=== PATIENT | male | born 1960 | race Caucasian/White ===

== ENCOUNTER 2018-12-29 08:43 | Emergency (ER) | payer BC ==
[2018-12-29] MEDS ORDERED: Etomidate 2 MG/ML 20 ML SDV IVPUSH ONE ×2 (08:44→09:40)
[2018-12-29] MEDS ORDERED: Tenecteplase 50 MG Kit ONE (08:49)
[2018-12-29] MEDS ORDERED: Sodium Chloride 0.9% 2.5 ML Syringe FLUSH PRN (08:53)
[2018-12-29] MEDS ORDERED: Sodium Chloride 0.9% 1,000 ML IV ONE ×4 (08:53→10:01)
[2018-12-29] MEDS ORDERED: Sodium Chloride 0.9% 10 ML Syringe FLUSH PRN (08:53)
[2018-12-29] MEDS ORDERED: Heparin Sodium 5,000 Units/ML Vial ONE (08:55)
[2018-12-29] MEDS ORDERED: Ondansetron 4 MG/2 ML SDV IVPUSH ONE ×2 (08:56→11:50)
[2018-12-29] MEDS ORDERED: Heparin Sodium 5,000 Units/ML Vial IVPUSH ONE (08:57)
[2018-12-29] MEDS ORDERED: Morphine 2 MG/ML Syringe IVPUSH ONE (08:57)
[2018-12-29] MEDS ORDERED: Heparin Sod,Pork In 0.45% Nacl 25,000 UNIT/500 ML IV.SOLN IV SCH ×2 (08:59→09:00)
[2018-12-29] MEDS ORDERED: Tenecteplase 50 MG Kit IV ONE (09:00)
[2018-12-29] MEDS ORDERED: Clopidogrel 75 MG Tab PO ONE (09:01)
--- NOTE | 2018-12-29 09:03 | EDM.PDOC ---
ED HPI GENERAL MEDICAL PROBLEM - General Chief Complaint: Chest Pain Stated Complaint: UNABLE TO BREATH Time Seen by Provider: 12/29/18 08:53 Source of Information: Reports: Patient History Limitations: Reports: No Limitations - History of Present Illness INITIAL COMMENTS - FREE TEXT/NARRATIVE: History of present illness: []Patient was brought in by ambulance after having chest pain that began this morning unknown exact time is rated 10/10 substernal. He was found by his unresponsive and EMS was called. EMS found him with a heart rate of 30 and slow to respond and diaphoretic. They gave him half a milligram of atropine dated 12-lead EKG which showed an inferior wall [place]. They gave him 2 doses of nitroglycerin and IV fluids. Patient arrived here awake and alert complaining of 6/10 chest pain with blood pressure of 103/78, pulse of 57, O2 sat 96 on 2 L. Patient has COPD and is not taking any medications, he denies having any heart disease. Review of systems: As per history of present illness and below otherwise all systems reviewed and negative. Past medical history: As per history of present illness and as reviewed below otherwise noncontributory. Surgical history: As per history of present illness and as reviewed below otherwise noncontributory. Social history: No reported history of drug or alcohol abuse. Family history: As per history of present illness and as reviewed below otherwise noncontributory. Physical exam: General: Well developed, well nourished in NAD, no diaphoresis HEENT: Atraumatic, normocephalic, pupils reactive, negative for conjunctival pallor or scleral icterus, mucous membranes moist, throat clear, neck supple, nontender, trachea midline. Lungs: Clear to auscultation, breath sounds equal bilaterally, chest nontender. Heart: S1S2, regular, negative for clicks, rubs, or JVD. Abdomen: NABS, Soft, nondistended, nontender. Negative for masses or hepatosplenomegaly. Negative for costovertebral tenderness. Pelvis: Stable nontender. Genitourinary: Deferred. Rectal: Deferred. Extremities: Atraumatic, negative for cords or calf pain. Neurovascular unremarkable. Neuro: Awake, alert, oriented. Cranial nerves II through XII unremarkable. Cerebellum unremarkable. Motor and sensory unremarkable throughout. Exam nonfocal. Skin:warm and dry Diagnostics: CBC, CMP, troponin, coags, chest x-ray 2, EKG 3, CT head negative Therapeutics: Zofran, T and K, heparin bolus and drip, Plavix started in the ED ED Course: Air transport was dispatched prior to patient's arrival Consulted Lissett Comanchebradford Villalobos accepts arrived and stated that he was driving his tractor and passed out x2 While in the ED patient started bradying down into the 30s with blood pressures 70's systolic decreasing to 50 systolic. 1 mg atropine was given and dopamine was started. Pacer pads were placed. Patient was intubated with RSI. Postintubation chest x-ray shows good ET tube placement. Fentanyl drip for sedation and rocuronium given. Please see nursing notes for dosages and times Impression: STEMI, heart block Prescriptions: N/A Plan: Transfer by air to Lissett Comanche Definitive disposition and diagnosis as appropriate pending reevaluation and review of above. Mid Sternal Chest Pain Score (Numeric/FACES): 6 - Related Data Allergies Allergy/AdvReac Type Severity Reaction Status Date / Time Penicillins Allergy Cannot Verified 12/29/18 09:10 Remember Home Meds: Home Meds . [No Known Home Meds] 12/29/18 [History] ED ROS GENERAL - Review of Systems Review Of Systems: ROS reveals no pertinent complaints other than HPI. ED EXAM, GENERAL - Physical Exam Exam: See Below (See history of present illness) Course - Vital Signs Last Recorded V/S: Last Vital Signs Temp 98.9 F 12/29/18 08:53 Pulse 49 L 12/29/18 08:53 Resp 18 12/29/18 08:53 BP 103/70 12/29/18 08:53 Pulse Ox 95 12/29/18 08:53 - Orders/Labs/Meds Orders: Active Orders 24 hr Category Date Time Status Cardiac Monitoring [RC] . DIRECTED Care 12/29/18 08:53 Active EKG Documentation Completion [RC] STAT Care 12/29/18 08:54 Active Oxygen Therapy [RC] ASDIRECTED Care 12/29/18 08:53 Active Pulse Oximetry [RC] ASDIRECTED Care 12/29/18 08:53 Active DOPamine/Dextrose 5%-Water [DOPamine in D5W 400 MG/250 Med 12/29/18 10:15 Active ML] 400 mg in 250 ml IV TITRATE Heparin Sod,Pork In 0.45% Nacl [Heparin-1/2Ns 25,000 Med 12/29/18 09:00 Active Units/500] 25,000 unit in 500 ml IV TITRATE Sodium Chloride 0.9% [Saline Flush] Med 12/29/18 08:53 Active 10 ml FLUSH ASDIRECTED PRN Sodium Chloride 0.9% [Saline Flush] Med 12/29/18 08:53 Active 2.5 ml FLUSH ASDIRECTED PRN Saline Lock Insert [OM.PC] Stat Oth 12/29/18 08:53 Ordered Medication Orders Heparin Sodium/Sodium Chloride (Heparin-1/2ns 25,000 Units/500) 25,000 unit in 500 mls @ 17.76 mls/hr IV TITRATE ROSA; Protocol Dopamine HCl/Dextrose (Dopamine In D5w 400 Mg/250 Ml) 400 mg in 250 mls @ 13.875 mls/hr IV TITRATE ORSA; Protocol Sodium Chloride (Saline Flush) 10 ml FLUSH ASDIRECTED PRN PRN Reason: Keep Vein Open Sodium Chloride (Saline Flush) 2.5 ml FLUSH ASDIRECTED PRN PRN Reason: Keep Vein Open Labs: Laboratory Tests 12/29/18 12/29/18 12/29/18 Range/Units 08:45 08:45 08:45 WBC 13.73 H (4.0-11.0) K/uL RBC 5.32 (4.50-5.90) M/uL Hgb 15.8 (13.0-17.0) g/dL Hct 46.8 (38.0-50.0) % MCV 88.0 (80.0-98.0) fL MCH 29.7 (27.0-32.0) pg MCHC 33.8 (31.0-37.0) g/dL RDW Std Deviation 42.9 (28.0-62.0) fl RDW Coeff of Norma 13 (11.0-15.0) % Plt Count 204 (150-400) K/uL MPV 11.80 (7.40-12.00) fL Neut % (Auto) 74.3 (48.0-80.0) % Lymph % (Auto) 19.4 (16.0-40.0) % [place] % (Auto) 4.7 (0.0-15.0) % Eos % (Auto) 1.2 (0.0-7.0) % Baso % (Auto) 0.4 (0.0-1.5) % Neut # (Auto) 10.2 H (1.4-5.7) K/uL Lymph # (Auto) 2.7 H (0.6-2.4) K/uL [place] # (Auto) 0.7 (0.0-0.8) K/uL Eos # (Auto) 0.2 (0.0-0.7) K/uL Baso # (Auto) 0.1 (0.0-0.1) K/uL Nucleated RBC % 0.0 /100WBC Nucleated RBCs # 0 K/uL INR 1.00 Sodium 143 (136-148) mmol/L Potassium 4.5 (3.5-5.1) mmol/L Chloride 107 (98-107) mmol/L Carbon Dioxide 23.7 (21.0-32.0) mmol/L BUN 12 (7.0-18.0) mg/dL Creatinine 1.2 (0.8-1.3) mg/dL Est Cr Clr Drug Dosing 70.13 mL/min Estimated GFR (MDRD) > 60.0 ml/min Glucose 185 H (74-106) mg/dL Calcium 8.6 (8.5-10.1) mg/dL Total Bilirubin 0.6 (0.2-1.0) mg/dL AST 33 (15-37) IU/L ALT 23 (14-63) IU/L Alkaline Phosphatase 72 (46-116) U/L Troponin I < 0.050 (0.000-0.056) ng/mL Total Protein 6.2 L (6.4-8.2) g/dL Albumin 3.4 (3.4-5.0) g/dL Globulin 2.8 (2.6-4.0) g/dL Albumin/Globulin Ratio 1.2 (0.9-1.6) Meds: Medications Generic Name Dose Route Start Last Admin Trade Name Freq PRN Reason Stop Dose Admin Heparin Sodium/Sodium Chloride 25,000 unit in 500 mls @ 17.76 mls/hr 12/29/18 09:00 Heparin-1/2ns 25,000 Units/500 IV TITRATE ROSA Protocol 12 UNITS/KG/HR Dopamine HCl/Dextrose 400 mg in 250 mls @ 13.875 mls/hr 12/29/18 10:15 Dopamine In D5w 400 Mg/250 Ml IV TITRATE ROSA Protocol 5 MCG/KG/MIN Sodium Chloride 10 ml 12/29/18 08:53 Saline Flush FLUSH ASDIRECTED PRN Keep Vein Open Sodium Chloride 2.5 ml 12/29/18 08:53 Saline Flush FLUSH ASDIRECTED PRN Keep Vein Open Discontinued Medications Generic Name Dose Route Start Last Admin Trade Name Freq PRN Reason Stop Dose Admin Atropine Sulfate 0.5 mg 12/29/18 09:30 Atropine 0.1 Mg/Ml IVPUSH 12/29/18 09:31 ONETIME ONE Atropine Sulfate 0.5 mg 12/29/18 09:36 Atropine 0.1 Mg/Ml IVPUSH 12/29/18 09:37 ONETIME ONE Clopidogrel Bisulfate 300 mg 12/29/18 09:01 12/29/18 09:04 Plavix PO 12/29/18 09:02 300 mg ONETIME ONE Administration Fentanyl 25 mcg 12/29/18 09:33 Sublimaze IVPUSH 12/29/18 09:34 ONETIME ONE Fentanyl Confirm 12/29/18 09:48 Sublimaze Administered 12/29/18 09:49 Dose 100 mcg .ROUTE .STK-MED ONE Fentanyl Confirm 12/29/18 09:49 Sublimaze Administered 12/29/18 09:50 Dose 100 mcg .ROUTE .STK-MED ONE Heparin Sodium (Porcine) 4,000 units 12/29/18 08:57 12/29/18 09:01 Heparin Sodium IVPUSH 12/29/18 08:58 4,000 units .BOLUS ONE Administration Protocol Heparin Sodium (Porcine) Confirm 12/29/18 08:55 Heparin Sodium Administered 12/29/18 08:56 Dose 5,000 units .ROUTE .STK-MED ONE Sodium Chloride 1,000 mls @ 999 mls/hr 12/29/18 08:53 12/29/18 08:45 Normal Saline IV 12/29/18 09:53 999 mls/hr BOLUS ONE Administration Propofol Confirm 12/29/18 09:45 Diprivan 100 Ml Administered 12/29/18 09:46 Dose 100 mls @ as directed .ROUTE .STK-MED ONE Ketamine HCl Confirm 12/29/18 09:51 Ketalar Administered 12/29/18 09:52 Dose 500 mg .ROUTE .STK-MED ONE Midazolam HCl 4 mg 12/29/18 10:02 Versed 1 Mg/Ml IVPUSH 12/29/18 10:03 ONETIME ONE Midazolam HCl Confirm 12/29/18 10:05 Versed 1 Mg/Ml Administered 12/29/18 10:06 Dose 4 mg .ROUTE .STK-MED ONE Morphine Sulfate 2 mg 12/29/18 08:57 12/29/18 09:04 Morphine IVPUSH 12/29/18 08:58 2 mg ONETIME ONE Administration Ondansetron HCl 4 mg 12/29/18 08:56 12/29/18 09:03 Zofran IVPUSH 12/29/18 08:57 4 mg ONETIME ONE Administration Rocuronium [place] 100 mg 12/29/18 10:02 Zemuron IVPUSH 12/29/18 10:03 ONETIME ONE Tenecteplase Confirm 12/29/18 08:49 Tnkase Administered 12/29/18 08:50 Dose 50 mg .ROUTE .STK-MED ONE Departure - Departure Time of Disposition: 11:02 Disposition: DC/Tfer to Acute Hospital 02 Reason for Transfer *Q: Primary PCI Indicated Condition: Good, Critical Clinical Impression: Acute myocardial infarction Qualifiers: Myocardial infarction type: ST elevation myocardial infarction Involved coronary artery: unspecified coronary artery Qualified Code(s): I21.3 - ST elevation (STEMI) myocardial infarction of unspecified site Referrals: PCP,Unknown [Primary Care Provider] - Forms: ED Department Discharge - My Orders Last 24 Hours: My Active Orders 12/29/18 08:53 Cardiac Monitoring [RC] . DIRECTED Oxygen Therapy [RC] ASDIRECTED Pulse Oximetry [RC] ASDIRECTED Sodium Chloride 0.9% [Saline Flush] 10 ml FLUSH ASDIRECTED PRN Sodium Chloride 0.9% [Saline Flush] 2.5 ml FLUSH ASDIRECTED PRN Saline Lock Insert [OM.PC] Stat 12/29/18 08:54 EKG Documentation Completion [RC] STAT 12/29/18 09:00 Heparin Sod,Pork In 0.45% Nacl [Heparin-1/2Ns 25,000 Units/500] 25,000 unit in 500 ml IV TITRATE 12/29/18 10:15 DOPamine/Dextrose 5%-Water [DOPamine in D5W 400 MG/250 ML] 400 mg in 250 ml IV TITRATE - Assessment/Plan Last 24 Hours: My Active Orders 12/29/18 08:53 Cardiac Monitoring [RC] . DIRECTED Oxygen Therapy [RC] ASDIRECTED Pulse Oximetry [RC] ASDIRECTED Sodium Chloride 0.9% [Saline Flush] 10 ml FLUSH ASDIRECTED PRN Sodium Chloride 0.9% [Saline Flush] 2.5 ml FLUSH ASDIRECTED PRN Saline Lock Insert [OM.PC] Stat 12/29/18 08:54 EKG Documentation Completion [RC] STAT 12/29/18 09:00 Heparin Sod,Pork In 0.45% Nacl [Heparin-1/2Ns 25,000 Units/500] 25,000 unit in 500 ml IV TITRATE 12/29/18 10:15 DOPamine/Dextrose 5%-Water [DOPamine in D5W 400 MG/250 ML] 400 mg in 250 ml IV TITRATE
--- NOTE | 2018-12-29 09:17 | CR ---
INDICATION: STEMI TECHNIQUE: Single view chest. FINDINGS: The lungs are clear. The heart, mediastinum and pulmonary vessels are of normal size. There is no evidence of pleural disease. IMPRESSION: Negative chest. Dictated by Shruti Miguel MD @ Dec 29 2018 9:15AM Signed by Dr. Shruti Miguel @ Dec 29 2018 9:16AM
[2018-12-29] MEDS ORDERED: Atropine 0.1 MG/ML 10 ML Syringe IVPUSH ONE ×2 (09:30→09:36)
[2018-12-29 09:32] LABS: CHLORIDE,CL 107 mmol/L (98-107); SODIUM,NA 143 mmol/L (136-148)
[2018-12-29] MEDS ORDERED: fentaNYL 100 MCG/2 ML SDV IVPUSH ONE (09:33)
[2018-12-29] MEDS ORDERED: Succinylcholine 200 MG/10 ML MDV IV STA (09:41)
[2018-12-29] MEDS ORDERED: fentaNYL 100 MCG/2 ML SDV ONE ×2 (09:48→09:49)
[2018-12-29] MEDS ORDERED: Ketamine 500 mg/10 ML MDV ONE (09:51)
[2018-12-29] MEDS ORDERED: fentaNYL 100 MCG/2 ML SDV IV ONE (10:00)
[2018-12-29] MEDS ORDERED: Midazolam 1 MG/ML 2 ML SDV IVPUSH ONE (10:02)
[2018-12-29] MEDS ORDERED: Rocuronium 50 MG/5 ML Vial IVPUSH ONE (10:02)
--- NOTE | 2018-12-29 10:02 | CT ---
INDICATION: Headache. TECHNIQUE: CT head without contrast. COMPARISON: None FINDINGS: CSF spaces: Within normal limits for age. Brain parenchyma: The shirley-white differentiation is normal. No sign of mass, hemorrhage, or midline shift. Skull base and calvarium: The visualized paranasal sinuses and mastoid air cells are clear. The visualized orbits are grossly unremarkable. No skull fractures. IMPRESSION: Unremarkable noncontrast head CT. Please note that all CT scans at this facility use dose modulation, iterative reconstruction, and/or weight-based dosing when appropriate to reduce radiation dose to as low as reasonably achievable. Dictated by Bartolo Qiu MD @ Dec 29 2018 9:57AM Signed by Dr. Bartolo Qiu @ Dec 29 2018 10:00AM
[2018-12-29] MEDS ORDERED: Midazolam 1 MG/ML 2 ML SDV ONE (10:05)
[2018-12-29] MEDS ORDERED: DOPamine/Dextrose 5%-Water 400 MG/250 ML BAG IV SCH (10:15)
--- NOTE | 2018-12-29 10:20 | CR ---
INDICATION: Cold blue, cardiovascular accident, post intubation. TECHNIQUE: Chest 1 view. COMPARISON: 48 minutes prior. FINDINGS: There has been interval intubation of the patient with CAD tip of the endotracheal tube appear in good position approximately 5 centimeters cephalad to the carinal. The lungs remain well inflated with no shift of midline structures. No pneumothorax, pulmonary alveolar consolidation or pleural effusion is evident. An old healed left lateral 8th rib fracture is present. A defibrillator pad is noted overlying the right lateral thorax. IMPRESSION: 1. Interval intubation of the patient with the endotracheal tube appearing in good position. 2. Other findings are unremarkable as noted above. Dictated by Bartolo Qiu MD @ Dec 29 2018 10:12AM Signed by Dr. Bartolo Qiu @ Dec 29 2018 10:18AM
[2018-12-29] MEDS ORDERED: Ketamine 500 mg/10 ML MDV IV ONE (11:49)
== END 2018-12-29 10:50 ==
LOC: MW.ED 08:43
DX: I21.3 ST elevation (STEMI) myocardial infarction of unspecified site (principal); Z88.0 Allergy status to penicillin
CPT/HCPCS: 31500; 36415; 51702; 70450; 71045; 80053; 84484; 85025; 85610; 92950; 93005; 96361; 96365; 96375; 96376; 99291; 99292; A9270; J0330; J0461; J1265; J1644; J2250; J2270; J2405; J2704; J3010; J3101; J3490; J7040; J7050; 99285

== ENCOUNTER 2021-01-30 03:15 | Emergency (ER) | payer BC ==
[2021-01-30] MEDS ORDERED: Diphtheria,Pertussis(Acell),Tetanus Vaccine 0.5 ML Syringe IM ONE (03:20)
--- NOTE | 2021-01-30 03:24 | EDM.PDOC ---
<Matt Rose - Last Filed: 01/30/21 05:01> ED HPI GENERAL MEDICAL PROBLEM - General Chief Complaint: General Stated Complaint: FALL Time Seen by Provider: 01/30/21 03:20 Source of Information: Reports: EMS History Limitations: Reports: Intoxication - History of Present Illness INITIAL COMMENTS - FREE TEXT/NARRATIVE: Patient is a 60-year-old male brought in by EMS for fall EtOH. EMS states patient was drinking had a few beers and a few shots and took a few steps forward and fell onto his face. Patient has been arousable but he was sleeping mostly here. Patient does make peripheral movement and withdraws to pain. Patient was placed in a collar by EMS. Patient only has some bleeding to the left side of his face but no other signs of injury or trauma to his extremities or body. - Related Data Allergies Allergy/AdvReac Type Severity Reaction Status Date / Time Penicillins Allergy Cannot Verified 01/30/21 03:18 Remember Home Meds: Home Meds . [No Known Home Meds] 12/29/18 [History] Past Medical History Respiratory History: Reports: COPD ED ROS GENERAL - Review of Systems Review Of Systems: Unable To Obtain Reason Not Obtained: intoxication ED EXAM, GENERAL - Physical Exam Exam: See Below Exam Limited By: Intoxication General Appearance: Alert, WD/WN, No Apparent Distress Eye Exam: Bilateral Eye: PERRL Head: No: Atraumatic Neck: Normal Inspection, Supple Respiratory/Chest: No Respiratory Distress, Lungs Clear Cardiovascular: Normal Peripheral Pulses, Regular Rate, Rhythm GI/Abdominal: Normal Bowel Sounds, Soft, Non-Tender Neurological: Other (Patient in collar but does withdrawal to pain and does mumble words.). No: Alert, Oriented #1 Interpretation EKG Date: 01/30/21 Time: 04:55 Rhythm: NSR Rate (Beats/Min): 85 ST-T: Normal Course - Re-Assessments/Exams Free Text/Narrative Re-Assessment/Exam: 01/30/21 05:02 Patient was found to have a subarachnoid hemorrhage as well as intraparenchymal hemorrhage with orbital floor fracture. We spoke to Lissett crisostomo and patient's been accepted by neurosurgery in the ER to physician Dr. Becerril. Patient remained stable was actually waking up more answering questions and following some commands. Departure - Departure Time of Disposition: 05:02 Disposition: DC/Tfer to Acute Hospital 02 Condition: Good Clinical Impression: Intraparenchymal hemorrhage of brain - Discharge Information *PRESCRIPTION DRUG MONITORING PROGRAM REVIEWED*: Not Applicable *COPY OF PRESCRIPTION DRUG MONITORING REPORT IN PATIENT EMPERATRIZ: Not Applicable Instructions: Intracerebral Hemorrhage Referrals: PCP,None [Primary Care Provider] - Forms: ED Department Discharge Critical Care Note - Critical Care Note Total Time (mins): 45 Comments: Critical Care Procedure Note Authorized and Performed by: Dr. Rose Total critical care time: Approximately Due to a high probability of clinically significant, life threatening deterioration, the patient required my highest level of preparedness to intervene emergently and I personally spent this critical care time directly and personally managing the patient. This critical care time included obtaining a history; examining the patient; pulse oximetry; ordering and review of studies; arranging urgent treatment with development of a management plan; evaluation of patient's response to treatment; frequent reassessment; and, discussions with other providers. This critical care time was performed to assess and manage the high probability of imminent, life-threatening deterioration that could result in multi-organ failure. It was exclusive of separately billable procedures and treating other patients and teaching time. Sepsis Event Note (ED) - Evaluation Sepsis Screening Result: No Definite Risk - Assessment/Plan Plan: Patient is a 60-year-old male presents today for fall and EtOH. Patient does withdraw the pain and mumble some words but otherwise does not report any history likely due to his agitation. Will obtain CT head C-spine and face and reassess. <David Varela - Last Filed: 01/30/21 10:05> Course - Vital Signs Last Recorded V/S: Last Vital Signs Temp 97.6 F 01/30/21 06:14 Pulse 79 01/30/21 09:43 Resp 16 01/30/21 09:43 BP 114/71 01/30/21 09:43 Pulse Ox 95 01/30/21 09:43 - Orders/Labs/Meds Orders: Active Orders 24 hr Category Date Time Status EKG Documentation Completion [RC] STAT Care 01/30/21 04:31 Active Vaccines to be Administered [RC] PER UNIT ROUTINE Care 01/30/21 03:21 Active Labs: Laboratory Tests 01/30/21 01/30/21 01/30/21 Range/Units 05:00 05:00 05:00 WBC 9.53 (4.0-11.0) K/uL RBC 5.11 (4.50-5.90) M/uL Hgb 14.6 (13.0-17.0) g/dL Hct 41.8 (38.0-50.0) % MCV 81.8 (80.0-98.0) fL MCH 28.6 (27.0-32.0) pg MCHC 34.9 (31.0-37.0) g/dL RDW Std Deviation 38.3 (28.0-62.0) fl RDW Coeff of Norma 13 (11.0-15.0) % Plt Count 190 (150-400) K/uL MPV 11.30 (7.40-12.00) fL Neut % (Auto) 83.8 H (48.0-80.0) % Lymph % (Auto) 11.9 L (16.0-40.0) % [place] % (Auto) 3.8 (0.0-15.0) % Eos % (Auto) 0.3 (0.0-7.0) % Baso % (Auto) 0.2 (0.0-1.5) % Neut # (Auto) 8.0 H (1.4-5.7) K/uL Lymph # (Auto) 1.1 (0.6-2.4) K/uL [place] # (Auto) 0.4 (0.0-0.8) K/uL Eos # (Auto) 0.0 (0.0-0.7) K/uL Baso # (Auto) 0.0 (0.0-0.1) K/uL Nucleated RBC % 0.0 /100WBC Nucleated RBCs # 0 K/uL INR APTT (18.6-31.3) SEC Sodium 131 L (136-148) mmol/L Potassium 4.0 (3.5-5.1) mmol/L Chloride 98 (98-107) mmol/L Carbon Dioxide 21.9 (21.0-32.0) mmol/L BUN 13 (7.0-18.0) mg/dL Creatinine 0.9 (0.8-1.3) mg/dL Est Cr Clr Drug Dosing 88.38 mL/min Estimated GFR (MDRD) > 60.0 ml/min Glucose 123 H (74-106) mg/dL Lactic Acid (0.4-2.0) mmol/L Calcium 8.0 L (8.5-10.1) mg/dL Total Bilirubin 0.2 (0.2-1.0) mg/dL AST 22 (15-37) IU/L ALT 28 (14-63) IU/L Alkaline Phosphatase 77 (46-116) U/L Total Protein 6.8 (6.4-8.2) g/dL Albumin 3.4 (3.4-5.0) g/dL Globulin 3.4 (2.6-4.0) g/dL Albumin/Globulin Ratio 1.0 (0.9-1.6) Lipase 135 (73-393) U/L Ethyl Alcohol 315 mg/dL SARS-CoV-2 RNA (DASHAWN) NEGATIVE (NEGATIVE) 01/30/21 01/30/21 01/30/21 Range/Units 05:20 05:20 05:20 WBC (4.0-11.0) K/uL RBC (4.50-5.90) M/uL Hgb (13.0-17.0) g/dL Hct (38.0-50.0) % MCV (80.0-98.0) fL MCH (27.0-32.0) pg MCHC (31.0-37.0) g/dL RDW Std Deviation (28.0-62.0) fl RDW Coeff of Norma (11.0-15.0) % Plt Count (150-400) K/uL MPV (7.40-12.00) fL Neut % (Auto) (48.0-80.0) % Lymph % (Auto) (16.0-40.0) % [place] % (Auto) (0.0-15.0) % Eos % (Auto) (0.0-7.0) % Baso % (Auto) (0.0-1.5) % Neut # (Auto) (1.4-5.7) K/uL Lymph # (Auto) (0.6-2.4) K/uL [place] # (Auto) (0.0-0.8) K/uL Eos # (Auto) (0.0-0.7) K/uL Baso # (Auto) (0.0-0.1) K/uL Nucleated RBC % /100WBC Nucleated RBCs # K/uL INR 0.98 APTT 24.5 (18.6-31.3) SEC Sodium (136-148) mmol/L Potassium (3.5-5.1) mmol/L Chloride (98-107) mmol/L Carbon Dioxide (21.0-32.0) mmol/L BUN (7.0-18.0) mg/dL Creatinine (0.8-1.3) mg/dL Est Cr Clr Drug Dosing mL/min Estimated GFR (MDRD) ml/min Glucose (74-106) mg/dL Lactic Acid 2.2 H* (0.4-2.0) mmol/L Calcium (8.5-10.1) mg/dL Total Bilirubin (0.2-1.0) mg/dL AST (15-37) IU/L ALT (14-63) IU/L Alkaline Phosphatase (46-116) U/L Total Protein (6.4-8.2) g/dL Albumin (3.4-5.0) g/dL Globulin (2.6-4.0) g/dL Albumin/Globulin Ratio (0.9-1.6) Lipase (73-393) U/L Ethyl Alcohol mg/dL SARS-CoV-2 RNA (DASHAWN) (NEGATIVE) Meds: Medications Discontinued Medications Generic Name Dose Route Start Last Admin Trade Name Freq PRN Reason Stop Dose Admin Diphtheria/Tetanus/Acell Pertussis 0.5 ml 01/30/21 03:20 01/30/21 06:11 Diphtheria,Pertussis(Acell),Tetanus Vaccine 0.5 Ml Syringe IM 01/30/21 03:21 0.5 ml .ONCE ONE Administration - Re-Assessments/Exams Free Text/Narrative Re-Assessment/Exam: 01/30/21 09:45 There was delay in finding an ambulance service that could take patient [facility] so air ambulance was activated. I did get a repeat CT scan 6 hours from the initial prior to patient leaving the emergency department. The read on that is pending at the moment. 01/30/21 09:51 There is a small increase in one of the areas of intraparenchymal hemorrhage. The other area is stable. There is still no midline shift or significant edema. Flight crew was on their way to pick patient up. 01/30/21 10:04 Air ambulance team is here to bring patient. Departure - Departure Time of Disposition: 10:05 Sepsis Event Note (ED) - Focused Exam Vital Signs: Vital Signs Temp Pulse Resp BP Pulse Ox 01/30/21 09:43 79 16 114/71 95 01/30/21 08:00 79 16 118/80 96 01/30/21 07:00 85 16 112/71 96 01/30/21 06:14 97.6 F 01/30/21 06:08 87 15 119/74 97 01/30/21 05:17 84 20 108/60 95 01/30/21 05:00 97 F 01/30/21 04:41 85 20 138/77 95 01/30/21 03:16 95.2 F L 77 20 128/70 94 L
--- NOTE | 2021-01-30 04:26 | CT ---
INDICATION: Fall, alcohol use. TECHNIQUE: CT head without contrast. COMPARISON: Head CT 12/29/2018 FINDINGS: There is high density within the left frontal lobe measuring 6 millimeters near the vertex and right parietal lobe near the vertex measuring 6 millimeters. Trace high-density is also questioned along the left frontal sulci. More prominent extra-axial high density seen anterior to the left temporal lobe. No significant mass effect. No hydrocephalus. Mild mucous thickening paranasal sinuses. No calvarial fracture seen. IMPRESSION: Acute intraparenchymal hemorrhage in the left frontal lobe and right parietal lobe each measuring 6 millimeters without significant mass effect. Small acute subarachnoid hemorrhage. Please note that all CT scans at this facility use dose modulation, iterative reconstruction, and/or weight-based dosing when appropriate to reduce radiation dose to as low as reasonably achievable. Dictated by Hu Hauser MD @ 01/30/2021 4:24:[address] Hu Hauser @ Jan 30 2021 4:24AM
--- NOTE | 2021-01-30 04:30 | CT ---
INDICATION: Fall, alcohol use TECHNIQUE: CT cervical spine without contrast. COMPARISON: None FINDINGS: Vertebrae: Alignment is normal. There are no fractures or suspicious bony lesions. Discs and facet joints: Posterior osteophytes at C3-4 causing mild left foraminal stenosis. Facet hypertrophy C4-5 without significant stenosis. Facet hypertrophy and posterior osteophyte at C5-6 causing moderate right and mild left foraminal stenosis. Facet hypertrophy C6-7 causing mild right foraminal stenosis. Facet hypertrophy C7-T1 without significant stenosis. Extraspinal findings: Prominent paraseptal bulla lung apices. IMPRESSION: Multilevel degenerative changes cervical spine without evidence of cervical spine fracture. Please note that all CT scans at this facility use dose modulation, iterative reconstruction, and/or weight-based dosing when appropriate to reduce radiation dose to as low as reasonably achievable. Dictated by Hu Hauser MD @ 01/30/2021 4:28:[address] Hu Hauser @ Jan 30 2021 4:28AM
--- NOTE | 2021-01-30 04:36 | CT ---
INDICATION: Fall TECHNIQUE: CT maxillofacial without contrast. COMPARISON: None FINDINGS: Facial bones: Nondisplaced fracture at the left orbital floor (series 209, image 62). Fracture plane extends into the posterior wall of the left maxillary sinus without significant displacement. Orbits and globes: No evidence of globe rupture. Minimal intraorbital emphysema. Sinuses: Mucosal thickening paranasal sinuses. Soft tissues: Left paravertebral subcutaneous hematoma. IMPRESSION: Left periorbital scalp hematoma with corresponding left orbital floor fracture posteriorly extending into the posterior superior margin of the left maxillary wall without significant displacement. Trace orbital emphysema. Please note that all CT scans at this facility use dose modulation, iterative reconstruction, and/or weight-based dosing when appropriate to reduce radiation dose to as low as reasonably achievable. Dictated by Hu Hauser MD @ 01/30/2021 4:34:[address] Hu Hauser @ Jan 30 2021 4:34AM
--- NOTE | 2021-01-30 05:09 | CR ---
Indication: Fall, alcohol use Technique: Chest 1 view Comparison: Chest x-ray 12/29/2018 Findings/Impression: Cardiovascular and mediastinum: Heart size and vasculature are normal in caliber and appearance. Lungs and pleural space: Lungs are clear. No sign of infiltrate or mass. No sign of pleural effusion. No pneumothorax. Bones and soft tissues: No acute findings. Dictated by Hu Hauser MD @ 01/30/2021 5:07:[address] Hu Hauser @ Jan 30 2021 5:07AM
[2021-01-30 05:29] LABS: BLOOD UREA NITROGEN,BUN 13 mg/dL (7.0-18.0); CARBON DIOXIDE,CO2 21.9 mmol/L (21.0-32.0); CHLORIDE,CL 98 mmol/L (98-107); GLUCOSE RANDOM 123 mg/dL (74-106); LIPASE 135 U/L (73-393); SODIUM,NA 131 mmol/L (136-148)
--- NOTE | 2021-01-30 09:49 | CT ---
INDICATION: Intracranial hemorrhage. Six there repeat scan. COMPARISON: 01/30/2021. TECHNIQUE: Noncontrast CT head. FINDINGS: Compared to the earlier exam, slight interval increase in size of the intraparenchymal hemorrhage of the left superior frontal lobe now measuring approximately 9 x 8 mm (axial image 27). Mild surrounding edema is more conspicuous. Stable size and appearance of the 6 mm intraparenchymal hemorrhage of the right parietal lobe. No new intracranial hemorrhage elsewhere. No acute infarct. No focal edema or mass effect. No midline shift. Basilar cisterns are patent. Normal calvarium and skull base. Visualized paranasal sinuses and mastoid air cells are clear. Normal orbits bilaterally. IMPRESSION: 1. Interval slight increase in size of the intraparenchymal hemorrhage of left superior frontal lobe. 2. Stable size and appearance of intraparenchymal hemorrhage of the right parietal lobe. 3. No new hemorrhage elsewhere. No acute infarcts. 4. No mass effect. Please note that all CT scans at this facility use dose modulation, iterative reconstruction, and/or weight-based dosing when appropriate to reduce radiation dose to as low as reasonably achievable. Dictated by Simon Stahl MD @ 01/30/2021 9:47:[address] Simon Stahl @ Jan 30 2021 9:47AM
== END 2021-01-30 10:04 ==
LOC: MW.ED 03:15
DX: S06.309A Unspecified focal traumatic brain injury with loss of consciousness of unspecified duration, initial encounter (principal); S02.32XA Fracture of orbital floor, left side, initial encounter for closed fracture; J44.9 Chronic obstructive pulmonary disease, unspecified; Z88.0 Allergy status to penicillin; Z23 Encounter for immunization; Z20.822 Contact with and (suspected) exposure to COVID-19; W18.30XA Fall on same level, unspecified, initial encounter
CPT/HCPCS: 36415; 70450; 70450-26; 70486; 70486-26; 71045; 71045-26; 72125; 72125-26; 80053; 80307; 83605; 83690; 85025; 85610; 85730; 90471; 90715; 93005; 99285-25; 99291; U0002